=== PATIENT | female | born 1960 ===

== ENCOUNTER 2021-07-24 15:38 | Emergency (ER) | payer BC ==
--- NOTE | 2021-07-24 17:18 | EDM.PDOC ---
ED HPI GENERAL MEDICAL PROBLEM - General Chief Complaint: [employer] Problem Stated Complaint: VAGINAL BLEEDING AFTER 13YRS OF NO PERIOD Time Seen by Provider: 07/24/21 16:42 Source of Information: Reports: Patient History Limitations: Reports: No Limitations - History of Present Illness INITIAL COMMENTS - FREE TEXT/NARRATIVE: Patient is a 60-year-old female who is having moderate vaginal bleeding which started today. Patient states she has approximately 1 pads worth of bleeding. She had a normal Pap smear around 3 years ago. She is having some crampy pelvic pain. She states this feels like she is having a light menstrual period. She denies feeling lightheaded. She has not been nauseous or vomiting. She denies any bloody or tarry stools. She has had no dysuria or hematuria. She is taking nothing for current pain symptoms. Patient spoke with her previous rn orthopaedics in [facility] and her PCP today and both insisted she come to the emergency department for evaluation including ultrasound. Past surgical history is positive for uterine ablation. Onset: Today Duration: Improving Location: Reports: Pelvis Quality: Reports: Ache Severity: Mild Improves with: Reports: None Worsens with: Reports: None Associated Symptoms: Reports: Other (Vaginal bleeding) Abdominal Pain Score (Numeric/FACES): 4 - Related Data Allergies Allergy/AdvReac Type Severity Reaction Status Date / Time No Known Allergies Allergy Verified 07/24/21 16:45 Home Meds: Home Meds clonazePAM [Clonazepam] 0.5 mg PO BEDTIME 07/24/21 [History] traMADol [Ultram] 50 mg PO BID PRN 07/24/21 [History] Past Medical History [employer] History: Reports: , Other (See Below) Other [employer] History: ablation Musculoskeletal History: Reports: Other (See Below) Other Musculoskeletal History: left foot surgery, right shoulder surgery Social & Family History - Tobacco Use Tobacco Use Status *Q: Never Tobacco User Second Hand Smoke Exposure: No - Caffeine Use Caffeine Use: Reports: Coffee - Recreational Drug Use Recreational Drug Use: No ED ROS GENERAL - Review of Systems Review Of Systems: Comprehensive ROS is negative, except as noted in HPI. Constitutional: Reports: No Symptoms GI/Abdominal: Reports: Abdominal Pain : Reports: Irregular Menses. Denies: Discharge, Dysuria, Flank Pain Skin: Reports: No Symptoms Neurological: Reports: No Symptoms ED EXAM, RENAL/ - Physical Exam Exam: See Below Exam Limited By: No Limitations General Appearance: Alert, No Apparent Distress Head: Normocephalic Neck: Normal Inspection, Supple Respiratory/Chest: No Respiratory Distress GI/Abdominal: Soft, No Mass, Tender Back Exam: Normal Inspection Extremities: Normal Inspection Neurological: Alert, Oriented Psychiatric: Normal Affect Skin Exam: Warm, Dry, Normal Color Course - Vital Signs Text/Narrative:: Patient's BBC is normal. She is not anemic. Ultrasound has been done. The ultrasound shows no abnormalities. Patient will be discharged at this point and will follow up with [facility] for additional work-up and if needed treatment. Last Recorded V/S: Last Vital Signs Temp 96.9 F 07/24/21 16:42 Pulse 93 07/24/21 16:42 Resp 15 07/24/21 16:42 BP 153/90 H 07/24/21 16:42 Pulse Ox 100 07/24/21 16:42 - Orders/Labs/Meds Labs: Laboratory Tests 07/24/21 Range/Units 17:51 WBC 9.53 (3.98-10.04) K/mm3 RBC 4.27 (3.98-5.22) M/mm3 Hgb 13.6 (11.2-15.7) gm/dl Hct 39.2 (34.1-44.9) % MCV 91.8 (79.4-94.8) fl MCH 31.9 (25.6-32.2) pg MCHC 34.7 (32.2-35.5) g/dl RDW Std Deviation 41.1 (36.4-46.3) fL Plt Count 283 (182-369) K/mm3 MPV 9.1 L (9.4-12.3) fl Neutrophils % (Manual) 69 H (40-60) % Band Neutrophils % 0 (0-10) % Lymphocytes % (Manual) 20 (20-40) % Atypical Lymphs % 0 % Monocytes % (Manual) 6 (2-10) % Eosinophils % (Manual) 5 (0.7-5.8) % Basophils % (Manual) 0 L (0.1-1.2) Platelet Estimate Adequate Plt Morphology Comment Normal RBC Morph Comment Normal Departure - Departure Time of Disposition: 18:48 Disposition: Home, Self-Care 01 Condition: Good Clinical Impression: Post-menopausal bleeding - Discharge Information Instructions: Postmenopausal Bleeding Referrals: Gabriella Daniels PA-C [Primary Care Provider] - Antonio Devine MD [Physician] - Forms: ED Department Discharge Additional Instructions: Follow-up with rn orthopaedics as soon as possible for additional work-up and treatment. Ibuprofen if needed for cramping pain. Return to ER symptoms are worse.
--- NOTE | 2021-07-24 19:08 | US ---
Pelvic ultrasound: Multiple real-time images were obtained transabdominally. Comparison: No prior pelvic ultrasound is available. Uterus is anteverted. Endometrial thickness is approximately 4 mm. No endometrial fluid is seen. Right and left ovaries are felt to be within normal limits. No free fluid is seen. Measurements: Right ovary: 2.0 x 0.8 x 1 x 5 cm Left ovary: 3.3 x 1.3 x 2.5 cm Uterus: Length 5.0 cm, AP height 2.0 cm, transverse width 3.0 cm. Impression: 1. No abnormality is seen on pelvic ultrasound study. Diagnostic code #1
== END 2021-07-24 19:29 | disposition home or self-care (01) ==
LOC: JD.ED 15:38
DX: N95.0 Postmenopausal bleeding (principal)
CPT/HCPCS: 36415; 76856; 76856-26; 85007; 85027; 99284-25